=== PATIENT | male | born 1940 | race Caucasian/White ===

== ENCOUNTER 2023-11-18 10:48 | Emergency (ER) | payer MEDICARE, SELFPAY ==
--- NOTE | 2023-11-18 10:48 | XR_ITS ---
WS: [id number] Portable AP upright chest, 11/18/2023 Clinical Data: dyspnea/cough Comparison: None. Findings: There are patchy bilateral lower lobe opacities which could represent atelectasis and/or pn eumonia. The heart is enlarged. The aortic arch and descending thoracic aorta show calcification and tortuosity. No pneumothorax is present. The pulmonary vascularity is not increased. There are surgica l clips in the right supraclavicular region. Monitor leads are on the chest wall. Impression: 1. Bilateral lower lobe opacities which could represent atelectasis and/or pneumonia. 2. Cardiomegaly and atherosclerosis.
--- NOTE | 2023-11-18 10:49 | ECG_ITS ---
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 Measurements Intervals [place] Rate: 60 P: 37 PA: 202 QRS: 41 QRSD: 122 T: -23 QT: 452 QTc: 452 Interpretive Statements SINUS RHYTHM WITH OCCASIONAL VENTRICULAR PREMATURE COMPLEXES INFERIOR MYOCARDIAL INFARCTION , OF INDETERMINATE AGE [40+ ms Q WAVE AND/OR ST/T ABNORMALITY IN II/aVF] ANTEROLATERAL MYOCARDIAL INFARCTION , OF INDETERMINATE AGE [40+ ms Q WAVE IN I/aVL/V3-V6] No previous ECG available for comparison Electronically Signed On 11-18-2023 14:00:57 ECOMMERCE ANALYST by Theodore Davison M.D. [email or web address].[place] Therapeuticssinging river gulfportThe New Motionselect medical [facility].[employer]/store/OM/[id number]
[2023-11-18 10:55] VITALS: BP 153/84; PULSE 58; RESP 16; TEMP 36.4; O2SAT 99; BMI 22.2
[2023-11-18 11:09] VITALS: BP 165/67; PULSE 55; RESP 16; O2SAT 98
[2023-11-18 11:15] LABS: Add Urine Microscopic? NO; Charge for UA Resulting for Rev
--- NOTE | 2023-11-18 11:16 | XR_ITS ---
WS: [id number] Right hip, 2 views, 11/18/2023 Clinical Data: trauma Comparison: None. Findings: The right hip arthroplasty is in good position. No periprosthetic fractures or loosening is seen. The re are vascular calcifications. The adjacent pelvis shows no abnormalities. Impression: Stable right hip arthroplasty
--- NOTE | 2023-11-18 11:16 | ED_ITS ---
HPI - Syncope 2 General: Chief Complaint: Syncope Stated Complaint: weakness, syncope Time Seen by Provider: 11/18/23 10:48 Source: patient Mode of arrival: EMS History of Present Illness: 83-year-old male resident of [facility] license of [facility] comes in by EMS. He gotten up got lightheaded dizzy felt weak he fell hit his head as he went down the wall and also was complaining of right hip pain this all happened this morning. There is no loss consciousness he states he otherwise feels fine at this time no recent change in medications he is awake alert oriented denies chest pain or abdominal pain is able to move all extremities without significant discomfort most of his right hip pain is over the lateral greater trochanter. He is not on any anticoagulants. MD complaint: almost passed out Onset (ago): minute(s) Prodromal symptoms: none Associated symptoms: Deny abdominal pain, chest pain, fever(s), headache(s), lightheadedness, nausea, short of breath, vertigo or weakness Treatments prior to arrival: none Review of Systems 2 Const: Denies: fever(s) or chills Card: Denies: chest pain, palpitations, irregular heart rhythm, edema, swelling of feet/ankles or lightheadedness Resp: Denies: dyspnea GI: Denies: abdominal pain or nausea : Denies: dysuria, urinary frequency or urinary urgency Musc: Denies: neck pain or back pain Skin/Breast: Denies: rash Neuro: Denies: headache(s) or vertigo Physical Exam 2 Const: COMMON NORMALS: no acute distress GENERAL APPEARANCE: cooperative and comfortable ORIENTATION/CONSCIOUSNESS: Yes awake, Yes oriented to person, Yes oriented to place and Yes oriented to time HENMT: COMMON NORMALS: normocephalic, atraumatic and hearing grossly normal bilaterally HEAD & SCALP: normocephalic and atraumatic Resp: COMMON NORMALS: normal respiratory effort, No retractions, No use of accessory muscles and clear to auscultation bilaterally AUSCULTATION: clear to auscultation bilaterally Cardio: COMMON NORMALS: regular rate, regular rhythm and No murmurs present (Cardio) RATE: regular rate RHYTHM: regular rhythm GI: COMMON NORMALS: Soft to palpation and No hepatosplenomegaly present A USCULTATION: Yes normoactive bowel sounds PALPATION: Yes Soft to palpation, No Tenderness to palpation present (GI), No Guarding due to palpation present (GI) and Yes No hepatosplenomegaly present Extremity: COMMON NORMALS: normal to inspection, capillary refill normal, no clubbing, cyanosis or edema, no calf tenderness and no pedal edema Neuro: SENSORIUM/ORIENTATION: Yes oriented to person, Yes oriented to place and Yes oriented to time Skin: COMMON NORMALS: no rashes or lesions noted GENERAL SKIN EXAM: no rashes or lesions noted Course 2 Vital Signs: Vital signs: Vital Signs Temperature 97.6 F 11/18/23 10:55 Pulse Rate 55 L 11/18/23 14:50 Respiratory Rate 12 11/18/23 12:52 Blood Pressure 108/79 11/18/23 12:52 Pulse Oximetry 97 11/18/23 14:50 Oxygen Delivery Me thod Room Air 11/18/23 12:52 MDM - Syncope Medical Decision Making No further symptoms EKG shows Q waves in V45 and 6, no ST depression no chest pain. Lab or x-rays reviewed no significant abnormality symptoms likely due to orthostatic hypotension patient is feeling better will discharge back to the senior living continue same medications follow-up with primary care at the senior living Medical Records I reviewed the patient's medical records. Lab Data I reviewed the patient's lab results. 11/18/23 11:52 11/18/23 11:52 Laboratory Results WBC 8.02 10^3/uL (3.29-11.43) 11/18/23 11:52 RBC 4.61 10^6/uL (3.85-5.65) 11/18/23 11:52 Hgb 16.10 g/dL (11.27-16.99) 11/18/23 11:52 Hct 47.0 % (37-53) 11/18/23 11:52 MCV 102.0 fl (82-101) H 11/18/23 11:52 MCH 34.9 pg (27-33) H 11/18/23 11:52 MCHC 34.3 g/dL (30-55) 11/18/23 11:52 RDW 14.6 % (12.1-15.1) 11/18/23 11:52 Plt Count 179 10^3/cmm (157-399) 11/18/23 11:52 MPV 10.5 fL (7.4-10.4) H 11/18/23 11:52 Neut % (Auto) 67.5 % 11/18/23 11:52 Lymph % (Auto) 19.3 % 11/18/23 11:52 [place] % (Auto) 10.1 % 11/18/23 11:52 Eos % (Auto) 2.2 % 11/18/23 11:52 Baso % (Auto) 0.5 % 11/18/23 11:52 Neut # (Auto) 5.41 10^3/uL (1.8-7.7) 11/18/23 11:52 Lymph # (Auto) 1.6 10^3/uL (0.8-4.8) 11/18/23 11:52 [place] # (Auto) 0.8 10^3/uL (0.2-0.9) 11/18/23 11:52 Eos # (Auto) 0.2 10^3/uL (0.0-0.8) 11/18/23 11:52 Baso # (Auto) 0.0 10^3/uL (0.0-0.1) 11/18/23 11:52 Nucleated RBC % (auto) 0 % 11/18/23 11:52 Nucleated RBCs # 0.0 /100WBC 11/18/23 11:52 Sodium 136 mmol/L (136-145) 11/18/23 11:52 Potassium 4.5 mmol/L (3.5-5.1) 11/18/23 11:52 Chloride 99 mmol/L (98-107) 11/18/23 11:52 Carbon Dioxide 29 mmol/L (22-29) 11/18/23 11:52 Anion Gap 12.5 (5-19) 11/18/23 11:52 BUN 13 mg/dL (8-23) 11/18/23 11:52 Creatinine 0.8 mg/dL (0.7-1.2) 11/18/23 11:52 GFR Calculation Not Reportable 11/18/23 11:52 Glucose 96 mg/dL (65-115) 11/18/23 11:52 POC Glucose 89 mg/dL (70-110) 11/18/23 11:18 Calculated Osmolality 282 mOsm/kg (285-295) L 11/18/23 11:52 Lactic Acid 1.2 mmol/L (0.5-2.2) 11/18/23 11:52 Calcium 10.0 mg/dL (8.5-10.5) 11/18/23 11:52 Total Bilirubin 1.3 mg/dL (0.15-1.2) H 11/18/23 11:52 AST 10 U/L (0-40) 11/18/23 11:52 ALT < 5 U/L (0-41) 11/18/23 11:52 Alkaline Phosphatase 61 U/L (40-130) 11/18/23 11:52 Troponin T Baseline 32 ng/L (0-15) H 11/18/23 11:52 Troponin T 120 Minute 38.92 ng/L (0-15) H 11/18/23 13:41 Delta Troponin T 6.92 ABS# (0-10) 11/18/23 13:41 Total Protein 7.0 g/dL (6.6-8.7) 11/18/23 11:52 Albumin 3.9 g/dL (3.5-5.2) 11/18/23 11:52 Globulin 3.1 g/dL (1.3-4.6) 11/18/23 11:52 Urine Color Yellow (Yellow) 11/18/23 11:02 Urine Appearance Clear (CLEAR) 11/18/23 11:02 Urine pH 8 (5-7) H 11/18/23 11:02 Ur Specific [place] 1.010 (1.005-1.030) 11/18/23 11:02 Urine Protein Neg (Negative) 11/18/23 11:02 Urine Glucose (UA) Norm (Normal) 11/18/23 11:02 Urine Ketones Negative (Negative) 11/18/23 11:02 Urine Blood Neg (Negative) 11/18/23 11:02 Urine Nitrate Negative (Negative) 11/18/23 11:02 Urine Bilirubin Neg (Negative) 11/18/23 11:02 Prot Sulfosalicylic Acd Negative (Negative) 11/18/23 11:02 Urine Urobilinogen Norm mg/dL (Negative) 11/18/23 11:02 Ur Leukocyte Esterase Negative (Negative) 11/18/23 11:02 Coronavirus 229E (PCR) Not detected (NOT DETECT) 11/18/23 12:14 Influenza Type A Ag negative (Negative) 11/18/23 11:47 Influenza Type B Ag negative (Negative) 11/18/23 11:47 SARS-CoV-2 (PCR) Not detected (NOT DETECT) 11/18/23 12:14 All radiology interpretation(s) finalized by discharge Discharge Plan Discharge Patient Disposition: Home Clinical Impression: Syncope due to orthostatic hypotension Condition: Stable Prescriptions: No Action glycopyrrolate 1 mg tablet 1 mg PO TID@0800,1199,2014 atorvastatin 40 mg tablet 40 mg PO DAILY@2014 ascorbic acid (vitamin C) [Vitamin C] 1,000 mg Tablet 1,000 mg PO DAILY@08 Tylenol 325 mg Tablet 650 mg PO Q4H PRN (Reason: Pain) ropinirole 1 mg tablet 1 mg PO TID@0800,1600,2014 donepezil 5 mg tablet 5 mg PO DAILY@08 albuterol sulfate 2.5 mg /3 mL (0.083 %) Solution For Nebulization 2.5 mg inhalation .EVERY 4-6 HOURS PRN (Reason: Wheezing) Miralax 17 gram Powder In Packet 17 g PO DAILY PRN (Reason: Constipation) aspirin 325 mg Tablet 325 mg PO DAILY@08 cyanocobalamin (vitamin B-12) 1,000 mcg Tablet 1,000 mcg PO DAILY@08 melatonin 3 mg Tablet 6 mg PO BEDTIME famotidine 20 mg tablet 20 mg PO BID@0800,2014 Refresh Tears 0.5 % Drops 1 - 2 drp ophthalmic (eye) PRN Colace 100 mg Capsule 100 - 300 mg PO DAILY PRN (Reason: Constipation) [place] Bismuth 262 mg Tablet,Chewable 524 mg PO .EVERY 30-60 MINS PRN (Reason: Heartburn) carbidopa-levodopa 25-100 mg tablet 1.5 tab PO QID Rx Instructions: @06:00,12:00,16:00,20:15 alfuzosin 10 mg tablet extended release 24 hr 10 mg PO DAILY@08 Refresh P.M. (lanolin) Ointment See Rx Instructions .ROUTE .COMPLEX Rx Instructions: PULL DOWN LOWER LID OF AFFECTED EYE AND APPLY SMALL AMOUNT INSIDE OF EYE calcium carbonate-vitamin D3 [Calcium 600 + D(3)] 600 mg-10 mcg (400 unit) Tablet 1 tab PO DAILY@08 cholecalciferol (vitamin D3) [Vitamin D3] 50 mcg (2,000 unit) Capsule 2,000 unit PO DAILY@08 Systane Nighttime 94-3 % Ointment See Rx Instructions .ROUTE .COMPLEX Rx Instructions: APPLY TO DRY EYES NEEDED Systane Gel 0.4-0.3 % Drops,Gel 1 - 2 drp OPHTHALMIC (EYE) PRN Rx Instructions: TO AFFECTED EYE menthol 1.1 mg Lozenge 1.1 mg PO .EVERY 2 HOURS PRN (Reason: Cough) Discharge Orders: Discharge ED (Routine); Ordered 11/18/23 Ordered By: Phan Salter Discharge Diet: Usual diet Discharge Activity: Increase activity as tolerated Patient Instructions: Opioid Safety, Pain Management Activity Restrictions/Additional Instructions: Thank you for choosing [facility] for your healthcare needs today. Please realize this is an emergency room and that we are providing you with a medical screening exam and this may not be complete and all inclusive of all the testing and or work up that you may need to determine your ailment or severity of your illness. It is very important that you follow up as instructed or that you return to the Emergency Department should you have concerns or if your condition changes or worsens in any way. Coding Level of Care Code ED Corporate Director for Tadeo Peoples
--- NOTE | 2023-11-18 11:16 | CT_ITS ---
WS: [id number] CT HEAD NONCONTRAST HISTORY: trauma TECHNIQUE: Contiguous axial imaging performed through the brain in 2.5 mm imaging. Bone and soft tiss ue windows. Sagittal and coronal reformats reviewed. All CT scans at [facility] use at least one of these dose optimization techniques: automated exposure control; mA and/or kV adjustment per pa tient size (includes targeted exams where dose is matched to clinical indication); or iterative recon struction. DLP: 1026.28 mGy.cm COMPARISON: None available. No acute intracranial hemorrhage, midline shift or mass effect. Mild bilateral symmetric atrophy and mild small vessel ischemic disease. There is also moderate cereb ellar atrophy which is symmetric. Ventricles: Mild ventriculomegaly on the basis of atrophy. No inferior displacement the cerebellar tonsils. Paranasal sinuses: As visualized are clear. Mastoid air cells: Well pneumatized. Calvarium and scalp: Skull is intact with no soft tissue edema or swelling. IMPRESSION: 1. No acute intracranial hemorrhage or edema. 2. Mild cerebral and cerebellar atrophy with small vessel ischemic disease.
[2023-11-18 11:22] LABS: Glucose Point of Care 89 mg/dL (70-110)
[2023-11-18 11:27] LABS: Bilirubin Urine Neg (Negative); Blood Urine Neg (Negative); Glucose Urine UA Norm (Normal); Ketones Urine Negative (Negative); Leukocyte Esterase Urine Negative (Negative); Nitrate Urine Negative (Negative); Protein Urine Neg (Negative); Sulfosalicylic Acid Urine Negative (Negative); Urine Appearance Clear (CLEAR); Urine Color Yellow (Yellow); Urobilinogen Urine Norm (Negative); pH Urine 8 (5-7)
--- NOTE | 2023-11-18 11:31 | PC.PHAR ---
PT IS FROM [facility] [phone] ETHAN THAT WORKS AT [facility] PT HAD ALL HIS AM MEDS TODAY 11/18/23-PTS GLENNA HAS VIT C 10,000MG DAILY CALLED AND VERIFIED WITH ETHAN THAT IT IS ACTUALLY 1,000MG DAILY-MEDICATIONS ENTERED ARE FROM THE PTS MAR AND TAR AND WHAT ETHAN STATES THE PT TAKES
[2023-11-18 12:16] LABS: Basophils % 0.5 %; Eosinophils # 0.2 10^3/uL (0.0-0.8); Eosinophils % 2.2 %; Lymphocytes # 1.6 10^3/uL (0.8-4.8); Lymphocytes % 19.3 %; Mean Corpuscular HGB Conc 34.3 g/dL (30-55); Mean Corpuscular Hemoglobin 34.9 pg (27-33); Mean Platelet Volume 10.5 fL (7.4-10.4); Monocytes # 0.8 10^3/uL (0.2-0.9); Monocytes % 10.1 %; Neutrophils # 5.41 10^3/uL (1.8-7.7); Neutrophils % 67.5 %; Nucleated Red Blood Cells % 0 %; Platelet Count 179 10^3/cmm (157-399); Red Blood Count 4.61 10^6/uL (3.85-5.65); Red Cell Distribution Width 14.6 % (12.1-15.1); White Blood Count 8.02 10^3/uL (3.29-11.43)
[2023-11-18 12:34] LABS: Influenza A by IFA negative (Negative); Influenza B by IFA negative (Negative)
[2023-11-18 12:35] LABS: Lactic Sepsis W/Reflex 1.2 mmol/L (0.5-2.2)
[2023-11-18 12:37] LABS: Troponin(5th) Baseline 32 ng/L (0-15)
[2023-11-18 12:39] LABS: Alanine Aminotransferase < 5 U/L (0-41); Albumin Level 3.9 g/dL (3.5-5.2); Alkaline Phosphatase 61 U/L (40-130); Anion Gap 12.5 (5-19); Aspartate Amino Transferase 10 U/L (0-40); Blood Urea Nitrogen 13 mg/dL (8-23); Carbon Dioxide 29 mmol/L (22-29); Chloride 99 mmol/L (98-107); Globulin 3.1 g/dL (1.3-4.6); Glucose 96 mg/dL (65-115); Osmolality Calculated 282 mOsm/kg (285-295); Potassium 4.5 mmol/L (3.5-5.1); Sodium 136 mmol/L (136-145); Total Bilirubin 1.3 mg/dL (0.15-1.2)
[2023-11-18 12:52] VITALS: BP 108/79; PULSE 60; RESP 12; O2SAT 99
--- NOTE | 2023-11-18 13:06 | ECG_ITS ---
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 Measurements Intervals [place] Rate: 58 P: 24 NE: 199 QRS: 35 QRSD: 125 T: -53 QT: 468 QTc: 461 Interpretive Statements SINUS BRADYCARDIA WITH OCCASIONAL VENTRICULAR PREMATURE COMPLEXES INFERIOR MYOCARDIAL INFARCTION , OF INDETERMINATE AGE [40+ ms Q WAVE AND/OR ST/T ABNORMALITY IN II/aVF] ANTEROLATERAL MYOCARDIAL INFARCTION , OF INDETERMINATE AGE [40+ ms Q WAVE IN I/aVL/V3-V6] Compared to ECG 11/18/2023 10:56:54 Sinus rhythm no longer present Myocardial infarct finding still present Electronically Signed On 11-18-2023 14:01:29 FIRE EQUIPMENT OPERATOR by Theodore Davison M.D. [id number]
--- NOTE | 2023-11-18 13:25 | PC.NURSE ---
discharge delayed d/t pt needing ride home
[2023-11-18 14:03] LABS: Adenovirus Not Detected (NOT DETECT); Chlamydia Pneumoniae Not Detected (NOT DETECT); Coronavirus 229E,HKU1,NL63,OC4 Not Detected (NOT DETECT); Human Metapneumovirus Not Detected (NOT DETECT); Human Rhinovirus/Enterovirus Not Detected (NOT DETECT); Influenza A Not Detected (NOT DETECT); Influenza A H1 Not Detected (NOT DETECT); Influenza A H1-2009 Not Detected (NOT DETECT); Influenza A H3 Not Detected (NOT DETECT); Influenza B Not Detected (NOT DETECT); Mycoplasma Pneumoniae Not Detected (NOT DETECT); Parainfluenza Virus Type 1 Not Detected (NOT DETECT); Parainfluenza Virus Type 2 Not Detected (NOT DETECT); Parainfluenza Virus Type 3 Not Detected (NOT DETECT); Parainfluenza Virus Type 4 Not Detected (NOT DETECT); Respiratory Syncytial Virus A Not Detected (NOT DETECT); Respiratory Syncytial Virus B Not Detected (NOT DETECT); SARS-COV-2 Not Detected (NOT DETECT)
[2023-11-18 14:19] LABS: Troponin 5 2HR 38.92 ng/L (0-15); Troponin 5 2HR Delta 6.92 ABS# (0-10)
[2023-11-18 14:33] VITALS: PULSE 55; O2SAT 97
[2023-11-18 14:50] VITALS: PULSE 55; O2SAT 97
== END 2023-11-18 15:03 | disposition home or self-care (01) ==
PROVIDERS: Emergency Provider Family Medicine
DX: I95.1 Orthostatic hypotension (principal); Z79.82 Long term (current) use of aspirin; Z11.52 Encounter for screening for COVID-19
CPT/HCPCS: 36415; 36416; 70450; 71045; 73502; 80053; 81003; 82962; 83605; 84484; 85025; 87635; 87804; 93005; 99285

== ENCOUNTER 2023-11-24 14:37 | Emergency (ER) | payer MEDICARE, SELFPAY ==
[2023-11-24 14:38] VITALS: BP 143/71; PULSE 62; RESP 18; TEMP 36.7; O2SAT 95; BMI 21.9
--- NOTE | 2023-11-24 14:42 | ECG_ITS ---
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 Measurements Intervals [place] Rate: 61 P: 35 [place]: 203 QRS: 12 QRSD: 119 T: -48 QT: 410 QTc: 416 Interpretive Statements SINUS RHYTHM INFERIOR MYOCARDIAL INFARCTION , PROBABLY RECENT [40+ ms Q WAVE AND/OR ST/T ABNORMALITY IN II/aVF] ANTEROLATERAL MYOCARDIAL INFARCTION , OF INDETERMINATE AGE [40+ ms Q WAVE IN I/aVL/V3-V6] ACUTE NH Compared to ECG 11/18/2023 13:06:10 Sinus bradycardia no longer present Ventricular premature complex(es) no longer present Myocardial infarct finding still present Electronically Signed On 11-24-2023 20:05:42 BLASTING MINER by Jayda Valera M.D. [email or web address]/[id number]
--- NOTE | 2023-11-24 14:43 | W.ED.GENADLT ---
HPI - General Adult General: Chief complaint: General Medical Stated complaint: hypotension Time Seen by Provider: 11/24/23 14:42 History of Present Illness: 83-year-old male patient with hypotension comes in today due to not feeling well and having a low blood pressure. Patient appears nontoxic. Patient's blood pressure has recovered to 143/71. Patient reports that he has a known hypotensive and due to his Parkinson's disease. Patient reports he has had physical therapy and it was noted that in about 5 minutes most of the time patient's blood pressure will drop the longer he stands. Patient at this time denies any pain or discomfort. Patient appears nontoxic. Respirations are even. Patient appears in no pain. Review of Systems General: Reports: 10 or more systems reviewed and unremarkable except in HPI and below Physical Exam Const: COMMON NORMALS: alert HENMT: COMMON NORMALS: normocephalic HEAD & SCALP: normocephalic Neck/C-Spine: COMMON NORMALS: full ROM Resp: COMMON NORMALS: normal respiratory effort and clear to auscultation bilaterally AUSCULTATION: clear to auscultation bilaterally Cardio: COMMON NORMALS: regular rate and regular rhythm RATE: regular rate RHYTHM: regular rhythm GI: COMMON NORMALS: Soft to palpation and non-tender PALPATION: Yes Soft to palpation Extremity: COMMON NORMALS: normal to inspection Neuro: SENSORIUM/ORIENTATION: Yes alert Skin: COMMON NORMALS: turgor normal GENERAL SKIN EXAM: turgor normal Course Vital Signs: Vital signs: Vital Signs Temperature 98.0 F 11/24/23 14:38 Pulse Rate 62 11/24/23 14:48 Respiratory Rate 18 11/24/23 14:48 Blood Pressure 143/71 11/24/23 14:48 Pulse Oximetry 95 11/24/23 14:48 Oxygen Delivery Me thod Room Air 11/24/23 14:48 [facility] - General Adult Medical Decision Making 83-year-old male patient with Parkinson's was brought into the ER for concerns of hypotension. Patient has hypotensive episodes secondary to his Parkinson's. There was concerned due to his blood pressure getting to 70 systolic. Patient blood pressure has since recovered to 143 systolic. Patient appears nontoxic. Patient appears in no pain. Respirations are even lungs are clear to auscultation. Skin is warm and dry vital signs are normal. Differential diagnosis includes not limited to dehydration, ACS, anemia, BPV, neurogenic orthostatic hypotension. Believe patient's hypotension is secondary to his Parkinson's disease. Laboratory values were unremarkable. 2-hour troponin showed no change. EKG showed no change from prior exams. Recommend patient follow-up with primary care to discuss options regarding treatment for management of hypotension. Patient reported understanding agreed to plan. Lab Data 11/24/23 15:03 11/24/23 15:03 Laboratory Results WBC 8.92 10^3/uL (3.29-11.43) 11/24/23 15:03 RBC 4.36 10^6/uL (3.85-5.65) 11/24/23 15:03 Hgb 15.30 g/dL (11.27-16.99) 11/24/23 15:03 Hct 45.2 % (37-53) 11/24/23 15:03 MCV 103.7 fl (82-101) H 11/24/23 15:03 MCH 35.1 pg (27-33) H 11/24/23 15:03 MCHC 33.8 g/dL (30-55) 11/24/23 15:03 RDW 14.6 % (12.1-15.1) 11/24/23 15:03 Plt Count 170 10^3/cmm (157-399) 11/24/23 15:03 MPV 10.2 fL (7.4-10.4) 11/24/23 15:03 Neut % (Auto) 72.9 % 11/24/23 15:03 Lymph % (Auto) 15.5 % 11/24/23 15:03 [place] % (Auto) 9.1 % 11/24/23 15:03 Eos % (Auto) 1.6 % 11/24/23 15:03 Baso % (Auto) 0.7 % 11/24/23 15:03 Neut # (Auto) 6.51 10^3/uL (1.8-7.7) 11/24/23 15:03 Lymph # (Auto) 1.4 10^3/uL (0.8-4.8) 11/24/23 15:03 [place] # (Auto) 0.8 10^3/uL (0.2-0.9) 11/24/23 15:03 Eos # (Auto) 0.1 10^3/uL (0.0-0.8) 11/24/23 15:03 Baso # (Auto) 0.1 10^3/uL (0.0-0.1) 11/24/23 15:03 Nucleated RBC % (auto) 0 % 11/24/23 15:03 Nucleated RBCs # 0.0 /100WBC 11/24/23 15:03 Sodium 138 mmol/L (136-145) 11/24/23 15:03 Potassium 4.1 mmol/L (3.5-5.1) 11/24/23 15:03 Chloride 102 mmol/L (98-107) 11/24/23 15:03 Carbon Dioxide 26 mmol/L (22-29) 11/24/23 15:03 Anion Gap 14.1 (5-19) 11/24/23 15:03 BUN 17 mg/dL (8-23) 11/24/23 15:03 Creatinine 0.8 mg/dL (0.7-1.2) 11/24/23 15:03 GFR Calculation Not Reportable 11/24/23 15:03 Glucose 109 mg/dL (65-115) 11/24/23 15:03 Calculated Osmolality 288 mOsm/kg (285-295) 11/24/23 15:03 Calcium 9.7 mg/dL (8.5-10.5) 11/24/23 15:03 Total Bilirubin 0.5 mg/dL (0.15-1.2) 11/24/23 15:03 AST 10 U/L (0-40) 11/24/23 15:03 ALT < 5 U/L (0-41) 11/24/23 15:03 Alkaline Phosphatase 60 U/L (40-130) 11/24/23 15:03 Troponin T Baseline 23 ng/L (0-15) H 11/24/23 15:03 Troponin T 120 Minute 24.08 ng/L (0-15) H 11/24/23 16:57 Delta Troponin T 1.08 ABS# (0-10) 11/24/23 16:57 Total Protein 7.0 g/dL (6.6-8.7) 11/24/23 15:03 Albumin 3.9 g/dL (3.5-5.2) 11/24/23 15:03 Globulin 3.1 g/dL (1.3-4.6) 11/24/23 15:03 All radiology interpretation(s) finalized by discharge EKG Data EKG 1: EKG interpretation date: 11/24/23 EKG interpretation time: 15:15 Prior EKG tracings: not available for review Interpretation: EKG shows a sinus rhythm with a regular rate at [address] elevation or ectopy is noted. No prior exam was available for comparison. Computer generated interpretation: Sinus rhythm, inferior myocardial infarction, probably recent. Anterior lateral myocardial infarction, of indeterminate age. Interpretation per cardiology, compared to EKG of 11/18/2023, sinus bradycardia no longer present, ventricular premature complexes no longer present, myocardial infarct finding still present. 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 Condition: Stable Prescriptions: No Action OcuSoft Lid Scrub Pads, Medicated 1 pad TOPICAL DAILY Refresh Plus 0.5 % Dropperette 1 - 2 drp OPHTHALMIC (EYE) PRN PRN (Reason: Dry Eyes) glycopyrrolate 1 mg tablet 1 mg PO TID@0800,1200,2014 atorvastatin 40 mg tablet 40 mg PO DAILY@2015 ascorbic acid (vitamin C) [Vitamin C] 1,000 mg Tablet 1,000 mg PO DAILY@08 acetaminophen [Tylenol] 325 mg Tablet 650 mg PO Q4H PRN (Reason: Pain) ropinirole 1 mg tablet 1 mg PO TID@0800,1600,2014 donepezil 5 mg tablet 5 mg PO DAILY@08 albuterol sulfate 2.5 mg /3 mL (0.083 %) Solution For Nebulization 2.5 mg inhalation .EVERY 4-6 HOURS PRN (Reason: Wheezing) polyethylene glycol 3350 [Miralax] 17 gram Powder In Packet 17 g PO DAILY PRN (Reason: Constipation) aspirin 325 mg Tablet 325 mg PO DAILY@08 cyanocobalamin (vitamin B-12) 1,000 mcg Tablet 1,000 mcg PO DAILY@08 melatonin 3 mg Tablet 6 mg PO BEDTIME famotidine 20 mg tablet 20 mg PO BID@0800,2014 docusate sodium [Colace] 100 mg Capsule 100 - 300 mg PO DAILY PRN (Reason: Constipation) bismuth subsalicylate [[place] Bismuth] 262 mg Tablet,Chewable 524 mg PO .EVERY 30-60 MINS PRN (Reason: Heartburn) carbidopa-levodopa 25-100 mg tablet 1.5 tab PO QID Rx Instructions: @06:00,12:00,16:00,20:15 alfuzosin 10 mg tablet extended release 24 hr 10 mg PO DAILY@08 Refresh P.M. (lanolin) Ointment See Rx Instructions .ROUTE .COMPLEX Rx Instructions: PULL DOWN LOWER LID OF AFFECTED EYE AND APPLY SMALL AMOUNT INSIDE OF EYE calcium carbonate-vitamin D3 [Calcium 600 + D(3)] 600 mg-10 mcg (400 unit) Tablet 1 tab PO DAILY@08 cholecalciferol (vitamin D3) [Vitamin D3] 50 mcg (2,000 unit) Capsule 2,000 unit PO DAILY@08 Systane Nighttime 94-3 % Ointment See Rx Instructions .ROUTE .COMPLEX Rx Instructions: APPLY OINTMENT TO DRY EYES NEEDED Systane Gel 0.4-0.3 % Drops,Gel 1 - 2 drp OPHTHALMIC (EYE) PRN Rx Instructions: TO AFFECTED EYE menthol 1.1 mg Lozenge 1.1 mg PO .EVERY 2 HOURS PRN (Reason: Cough) Discharge Orders: Discharge ED (Routine); Ordered 11/24/23 Ordered By: Shane Darling Discharge Diet: Usual diet Discharge Activity: Increase activity as tolerated Patient Instructions: Hypotension (ED) Activity Restrictions/Additional Instructions: Change positions slowly. Follow-up with primary care for changes in your medication or additional medications to help with the low blood pressure. Return to ER for new concerns. Coding Level of Care Code ED Master [place] for Tadeo Peoples
[2023-11-24 14:48] VITALS: BP 143/71; PULSE 62; RESP 18; O2SAT 95
[2023-11-24 15:14] LABS: Basophils # 0.1 10^3/uL (0.0-0.1); Basophils % 0.7 %; Eosinophils # 0.1 10^3/uL (0.0-0.8); Eosinophils % 1.6 %; Hematocrit 45.2 % (37-53); Lymphocytes # 1.4 10^3/uL (0.8-4.8); Lymphocytes % 15.5 %; Mean Corpuscular HGB Conc 33.8 g/dL (30-55); Mean Corpuscular Hemoglobin 35.1 pg (27-33); Mean Corpuscular Volume 103.7 fl (82-101); Mean Platelet Volume 10.2 fL (7.4-10.4); Monocytes # 0.8 10^3/uL (0.2-0.9); Monocytes % 9.1 %; Neutrophils # 6.51 10^3/uL (1.8-7.7); Neutrophils % 72.9 %; Nucleated Red Blood Cells % 0 %; Platelet Count 170 10^3/cmm (157-399); Red Blood Count 4.36 10^6/uL (3.85-5.65); Red Cell Distribution Width 14.6 % (12.1-15.1); White Blood Count 8.92 10^3/uL (3.29-11.43)
[2023-11-24 15:38] LABS: Alanine Aminotransferase < 5 U/L (0-41); Albumin Level 3.9 g/dL (3.5-5.2); Alkaline Phosphatase 60 U/L (40-130); Anion Gap 14.1 (5-19); Aspartate Amino Transferase 10 U/L (0-40); Blood Urea Nitrogen 17 mg/dL (8-23); Calcium 9.7 mg/dL (8.5-10.5); Carbon Dioxide 26 mmol/L (22-29); Chloride 102 mmol/L (98-107); Globulin 3.1 g/dL (1.3-4.6); Glucose 109 mg/dL (65-115); Osmolality Calculated 288 mOsm/kg (285-295); Potassium 4.1 mmol/L (3.5-5.1); Sodium 138 mmol/L (136-145); Total Bilirubin 0.5 mg/dL (0.15-1.2); Troponin(5th) Baseline 23 ng/L (0-15)
--- NOTE | 2023-11-24 16:01 | PC.PHAR ---
PT IS [facility] [phone]
--- NOTE | 2023-11-24 16:44 | ECG_ITS ---
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 Measurements Intervals [place] Rate: 59 P: 41 [place]: 202 QRS: 23 QRSD: 125 T: -70 QT: 411 QTc: 409 Interpretive Statements SINUS BRADYCARDIA ANTEROLATERAL MYOCARDIAL INFARCTION , OF INDETERMINATE AGE [40+ ms Q WAVE IN I/aVL/V3-V6] Possible old inferior wall CT Compared to ECG 11/24/2023 15:08:24 Sinus rhythm no longer present Myocardial infarct finding still present Electronically Signed On 11-24-2023 20:23:03 ACCESS TECH by Jayda Valera M.D. [id number]
[2023-11-24 17:27] LABS: Troponin 5 2HR 24.08 ng/L (0-15); Troponin 5 2HR Delta 1.08 ABS# (0-10)
[2023-11-24 18:02] VITALS: BP 185/82; PULSE 59; O2SAT 97
== END 2023-11-24 18:04 | disposition home or self-care (01) ==
PROVIDERS: Emergency Provider Nurse Practitioner Family
DX: G20.A1 Parkinson's disease without dyskinesia, without mention of fluctuations (principal); G90.3 Multi-system degeneration of the autonomic nervous system; Z79.82 Long term (current) use of aspirin
CPT/HCPCS: 36415; 80053; 84484; 85025; 93005; 99284

== ENCOUNTER 2023-12-31 05:06 | Emergency (ER) | payer MEDICARE, SELFPAY ==
[2023-12-31 05:07] VITALS: BP 149/78; PULSE 66; TEMP 36.8; O2SAT 97; BMI 21.9
--- NOTE | 2023-12-31 05:19 | XRR_ITS ---
PROCEDURE INFORMATION: Exam: XR Chest Exam date and time: 12/31/2023 5:24 AM Age: 83 years old Clinical indication: Prior surgery; Surgery date: 6+ months; Surgery type: Open heart; Patient HX: C/O cough with congestion; Additional info: Cough/congestion TECHNIQUE: Imaging protocol: Radiologic exam of the chest. Views: 1 view. COMPARISON: CR XR chest 1V portable [id number] 11/18/2023 10:52 AM FINDINGS: Lungs: Moderate chronic interstitial fibrosis. Pleural spaces: Unremarkable. No pleural effusion. No pneumothorax. Heart/Mediastinum: See Vasculature finding. Vasculature: Mild cardiomegaly and uncoiling of the thoracic aorta. Bones/joints: Unremarkable. Other findings: Surgery at the base of the neck on the right. XR/XR chest 1V portable [id number] IMPRESSION: 1. No acute findings. 2. Moderately severe chronic interstitial fibrosis.
--- NOTE | 2023-12-31 05:32 | ED_ITS ---
HPI - URI/Sore Throat General: Chief Complaint: Upper Respiratory Infection Stated Complaint: RUNNY NOSE Time Seen by Provider: 12/31/23 05:19 History of Present Illness: 83-year-old male presents emerged part w ith complaints of a nonproductive cough for the previous 2 days. He states he also has nasal congestion but also has a runny nose. He denies fevers chills or night sweats. He states he feels like he does get short of breath after he has a coughing fit his oxygen saturation per EMS personnel have been in the mid 90s. Here in the ER his oxygen saturation is 97%. He denies chest pain dizziness lightheaded feeling. He states he has not taken anything [id number] for his cough or congestion. Associated symptoms: Reports nasal congestion Review of Systems General: Reports: 10 or more systems reviewed and unremarkable except in HPI and below ENMT: Reports: nasal congestion and other (Rhinorrhea) Resp: Reports: non-productive cough; Denies: dyspnea or wheezing PFS ED PFSH: Medical History (Updated 01/08/24 @ 00:01 by JASMIN Barroso) Parkinsons disease Diagnosed 2011 Hypotension History of heart attack History of hip fracture Surgical History (Updated 12/29/23 @ 09:07 by Floridalma Meadows MD) History of open heart surgery 1995 History of hip surgery Bilateral Social History (Updated 12/26/23 @ 14:04 by Amber Soriano CMA) Smoking and tobacco/nicotine status: never used tobacco/nicotine Alcohol intake: unknown Substance/Drug Use: unknown Physical Exam Narrative: EXAM NARRATIVE: Constitutional: the patient appears well nourished and of normal development. Vital signs as documented. No acute distress at present. Alert and oriented-to person, place, time and situation. Head, eyes, ears, nose, mouth, throat: Normocephalic, atraumatic. Pupils-equal, round, reactive to light. No scleral icterus. Normal-appearing external ears. Boggy and erythematous appearing nasal turbinates, no drainage. No obvious oral lesions, posterior oropharynx without erythema or exudates. Neck: Supple, trachea is midline, no lymphadenopathy, no jugular venous distens ion, thyromegaly, or carotid bruits. Carotid upstrokes are brisk bilaterally. Lungs: clear to auscultation to all lung hager. Symmetrical rise and fall of chest, no obvious signs of increased work of breathing at present. Cardiac: Regular rate and rhythm, positive S1, S2. No murmurs, rubs or gallops that I can appreciate Abdomen: Soft, non-tender to palpation, normal active bowel sounds to all quadrants. No palpable masses, no organomegaly and abdominal bruits. Extremities: 2+ pulses in the upper extremities that are equal bilaterally, 2+ pulses in the lower extremities that are equal bilaterally. Non-edematous. Moves all extremities well, sensation to all extremities are noted. Skin: Warm, dry, intact. Course Vital Signs: Vital signs: Vital Signs Temperature 98.3 F 12/31/23 05:07 Pulse Rate 66 12/31/23 05:07 Respiratory Rate 18 12/31/23 06:24 Blood Pressure 158/102 12/31/23 06:24 Pulse Oximetry 96 12/31/23 06:24 Oxygen Delivery Me thod Room Air 12/31/23 05:07 MDM - URI/Sore Throat Medical Decision Making Physical exam completed and documented I did obtain a chest x-ray with no acute findings. Differential diagnosis includes upper respiratory viral illness, pneumonia, Medical Records I reviewed the patient's medical records. Lab Data Radiology Impressions Chest X-Ray 12/31/23 05:19 IMPRESSION: 1. No acute findings. 2. Moderately severe chronic interstitial fibrosis. All radiology interpretation(s) finalized by discharge Discharge Plan Discharge Patient Disposition: Home Clinical Impression: Viral upper respiratory illness, Cough, Rhinorrhea Condition: Stable Prescriptions: New fluticasone propionate 50 mcg/actuation spray,suspension 2 spray intranasal DAILY PRN (Reason: nasal congestion) Qty: 16 0RF Rx Instructions: administer into each nostril guaifenesin 1,200 mg tablet extended release 12hr 1,200 mg PO BID Qty: 14 0RF benzonatate 200 mg capsule 200 mg PO TID Qty: 30 0RF No Action fluticasone propionate [Allergy Relief (fluticasone)] 50 mcg/actuation spray,suspension 1 spray intranasal BID Rx Instructions: administer into each nostril albuterol sulfate 2.5 mg /3 mL (0.083 %) solution for nebulization 2.5 mg inhalation Q4H PRN atorvastatin 40 mg tablet 40 mg PO DAILY 90 Days Qty: 90 3RF famotidine 20 mg tablet 20 mg PO BID 90 Days Qty: 180 3RF OcuSoft Lid Scrub Pads, Medicated 1 pad TOPICAL DAILY Refresh Plus 0.5 % Dropperette 1 - 2 drp OPHTHALMIC (EYE) PRN PRN (Reason: Dry Eyes) acetaminophen [Tylenol] 325 mg Tablet 650 mg PO Q4H PRN (Reason: Pain) polyethylene glycol 3350 [Miralax] 17 gram Powder In Packet 17 g PO DAILY PRN (Reason: Constipation) cyanocobalamin (vitamin B-12) 1,000 mcg Tablet 1,000 mcg PO DAILY@08 melatonin 3 mg Tablet 6 mg PO BEDTIME docusate sodium [Colace] 100 mg Capsule 100 - 300 mg PO DAILY PRN (Reason: Constipation) bismuth subsalicylate [[place] Bismuth] 262 mg Tablet,Chewable 524 mg PO .EVERY 30-60 MINS PRN (Reason: Heartburn) carbidopa-levodopa 25-100 mg tablet 1.5 tab PO QID Rx Instructions: @06:00,12:00,16:00,20:15 Refresh P.M. (lanolin) Ointment See Rx Instructions .ROUTE .COMPLEX Rx Instructions: PULL DOWN LOWER LID OF AFFECTED EYE AND APPLY SMALL AMOUNT INSIDE OF EYE cholecalciferol (vitamin D3) [Vitamin D3] 50 mcg (2,000 unit) Capsule 2,000 unit PO DAILY@08 Systane Nighttime 94-3 % Ointment See Rx Instructions .ROUTE .COMPLEX Rx Instructions: APPLY OINTMENT TO DRY EYES NEEDED Systane Gel 0.4-0.3 % Drops,Gel 1 - 2 drp OPHTHALMIC (EYE) PRN Rx Instructions: TO AFFECTED EYE menthol 1.1 mg Lozenge 1.1 mg PO .EVERY 2 HOURS PRN (Reason: Cough) ascorbic acid (vitamin C) [Vitamin C] 1,000 mg tablet 1,000 mg PO DAILY aspirin 325 mg tablet 325 mg PO DAILY calcium carbonate-vitamin D3 [Calcium 600 + D(3)] 600 mg-10 mcg (400 unit) tablet 1 tab PO DAILY donepezil 5 mg tablet 5 mg PO DAILY glycopyrrolate 1 mg tablet 1 mg PO TID ropinirole 1 mg tablet 1 mg PO TID Discharge Orders: Discharge ED (Routine); Ordered 12/31/23 Ordered By: David Sue Referrals: Floridalma Meadows MD [Primary Care Provider] - Discharge Diet: Usual diet Discharge Activity: Resume usual activity Patient Instructions: Opioid Safety, Pain Management Activity Restrictions/Additional Instructions: Activity Restrictions/Additional Instructions: Thank you for choosing [facility] for your healthcare needs today. Please realize that you were seen in the Emergency Department and that we are providing you with an emergency medical screening exam and this may not be a complete and all inclusive of all the testing and or medical work-up that you may need to determine your ailment or severity of your illness. It is very important that you follow-up as instructed with your Primary care provider or Specialist for additional evaluation and to discuss your medical treatment plan. Coding Level of Care Code ED [place] Cloth Finisher for Tadeo Peoples
[2023-12-31 06:24] VITALS: BP 158/102; RESP 18; O2SAT 96
--- NOTE | 2023-12-31 07:56 | PC.PHAR ---
PT IS FROM [facility]
== END 2023-12-31 07:58 | disposition home or self-care (01) ==
PROVIDERS: Emergency Provider Internal Medicine; PCP Family Medicine
DX: J06.9 Acute upper respiratory infection, unspecified (principal); R05.9 Cough, unspecified; J34.89 Other specified disorders of nose and nasal sinuses; Z79.82 Long term (current) use of aspirin; G20.A1 Parkinson's disease without dyskinesia, without mention of fluctuations
CPT/HCPCS: 71045; 99283

== ENCOUNTER 2024-02-05 16:32 | Emergency (ER) | payer MEDICARE, SELFPAY ==
[2024-02-05 16:38] VITALS: BP 134/80; PULSE 79; RESP 17; TEMP 36.5; O2SAT 98; BMI 21.5
--- NOTE | 2024-02-05 16:50 | XRR_ITS ---
PROCEDURE INFORMATION: Exam: XR Chest Exam date and time: 02/05/2024 5:04 PM Age: 83 years old Clinical indication: Other: Weakness; Prior surgery; Surgery date: 6+ months; Surgery type: Open heart; Additional info: Shortness of breath TECHNIQUE: Imaging protocol: Radiologic exam of the chest. Views: 1 view. COMPARISON: CR (CHEST, ) 12/31/2023 5:24 AM FINDINGS: Lungs: Diffuse interstitial markings in the periphery of both lungs are nonspecific but can be seen the setting of bronchitis, pulmonary vascular congestion, viral infection and small-vessel airways disease. No new focal consolidation. Pleural spaces: Unremarkable. No pleural effusion. No pneumothorax. Heart/Mediastinum: Unremarkable. No cardiomegaly. Bones/joints: Unremarkable. XR/XR chest 1V [id number] IMPRESSION: 1. Diffuse interstitial markings in the periphery of both lungs are nonspecific but can be seen the setting of bronchitis, pulmonary vascular congestion, viral infection and small-vessel airways disease. Findings are similar to the prior examination. 2. No new focal consolidation.
--- NOTE | 2024-02-05 17:08 | ED_ITS ---
HPI - Weakness 2 General: Chief complaint: Weakness Stated complaint: WEAKNESS Time Seen by Provider: 02/05/24 16:40 History of Present Illness: 83-year-old man with a history of [place] son's disease and has to use a walker at home, coronary artery disease and history of hypotension who presents to the emergency room with weakness. He says he has been feeling generalized weak since this morning. He says he can barely walk. He says he normally walks with a walker. He says he feels slightly short of breath. No chest pain. No abdominal pain. No nausea or vomiting. No known fevers. Review of Systems 2 Narrative: Constitutional symptoms: Negative except as documented in HPI. Skin symptoms: Negative except as documented in HPI. Eye symptoms: Negative except as documented in HPI. ENMT symptoms: Negative except as documented in HPI. Respiratory symptoms: Negative except as documented in HPI. Cardiovascular symptoms: Negative except as documented in HPI. Gastrointestinal symptoms: Negative except as documented in HPI. Genitourinary symptoms: Negative except as documented in HPI. Musculoskeletal symptoms: Negative except as documented in HPI. Neurologic symptoms: Negative except as documented in HPI. Psychiatric symptoms: Negative except as documented in HPI. Endocrine symptoms: Negative except as documented in HPI. PFSH ED 2 PFSH: Medical History (Updated 02/05/24 @ 20:37 by Thelma Lerner MD) Parkinsons disease Diagnosed 2011 Hypotension History of heart attack History of hip fracture Surgical History (Updated 12/29/23 @ 09:07 by Floridalma Meadows MD) History of open heart surgery 1995 History of hip surgery Bilateral Social History (Updated 12/26/23 @ 14:04 by Amber Soriano CMA) Smoking and tobacco/nicotine status: never used tobacco/nicotine Alcohol intake: unknown Substance/Drug Use: unknown Physical Exam 2 Narrative: EXAM NARRATIVE: General: Alert, no acute distress. Skin: Warm, dry. Head: Normocephalic, atraumatic. Neck: Supple, trachea midline. Eye: Extraocular movements are intact. Ears, nose, mouth and throat: Dry oral mucosa Cardiovascular: Regular, Normal peripheral perfusion. Respiratory: Lungs are clear to auscultation, respirations are non-labored, breath sounds are equal, Symmetrical chest wall expansion. Gastrointestinal: Soft, Nontender, Non distended, Normal bowel sounds. Musculoskeletal: Normal ROM, no deformity. Neurological: Alert and oriented, No focal neurological deficit observed. Patient has some tremor Psychiatric: Cooperative, appropriate mood & affect. Course 2 Vital Signs: Vital signs: Vital Signs Temperature 97.7 F 02/05/24 16:38 Pulse Rate 77 02/05/24 20:00 Respiratory Rate 16 02/05/24 20:00 Blood Pressure 121/70 02/05/24 20:00 Pulse Oximetry 96 02/05/24 20:00 Oxygen Delivery Me thod Room Air 02/05/24 18:00 MDM - Weakness Medical Decision Making Medical decision making: Differential diagnosis for patient presenting with generalized weakness including but not limited to and based on the above HPI, review of systems and physical exam: Sepsis. Dehydration. Renal failure. Electrolyte abnormalities. Anemia. Congestive heart failure. Hypotension. Coronary syndrome. Hepatitis. Cirrhosis. Infections such as pneumonia, urinary tract infection, [place] illness, Cellulitis, Viral infections including influenza and Covid-19. Workup: labwork and lab/exam driven imaging ordered to evaluate, rule in and rule out above pathologies. Chest x-ray: No acute process. No infiltrate. No pneumothorax. No cardiomegaly. This was reviewed and interpreted by myself the ER physician. EKG: Time 183 rate 74 normal sinus rhythm, No ST-T changes, PVCs, normal DE & QRS intervals, This was reviewed and interpreted by myself the ER physician at 1840 Repeat EKG: Time 1948 rate 72 normal sinus rhythm, No ST-T changes, PVCs, normal DE & QRS intervals, This was reviewed and interpreted by myself the ER physician at 1954 Lab Review: Laboratory results were reviewed and interpreted by myself the emergency room physician. Patient has a white count of 12. Hemoglobin 16.8. BUN and creatinine are 13 and 0.7. Viral panel is positive for enterovirus. He also appears to have urinary tract infection. I reviewed the patient's medical record. Reexamination: Patient remained stable. No increased work of breathing. He has some generalized weakness but this seems to be somewhat improved. Also of note apparently his 1 year ago today. Assisted living thinks this may be affecting him as well. Assessment and plan: Enterovirus Urinary tract infection Dehydration Generalized weakness -IV fluids and IV Rocephin. - Discharged home - Discussed findings and plan with patient. Answered any questions. - All laboratory values were reviewed and interpreted personally by myself, the ER physician - All imaging was reviewed and interpreted personally by myself, the ER physician. - Evaluation and treatment of this problem were appropriate in the emergency setting Lab Data 02/05/24 17:18 02/05/24 17:18 Radiology Impressions Chest X-Ray 02/05/24 16:50 IMPRESSION: 1. Diffuse interstitial markings in the periphery of both lungs are nonspecific but can be seen the setting of bronchitis, pulmonary vascular congestion, viral infection and small-vessel airways disease. Findings are similar to the prior examination. 2. No new focal consolidation. Laboratory Results WBC 11.92 10^3/uL (3.29-11.43) H 02/05/24 17:18 RBC 4.77 10^6/uL (3.85-5.65) 02/05/24 17:18 Hgb 16.80 g/dL (11.27-16.99) 02/05/24 17:18 Hct 49.5 % (37-53) 02/05/24 17:18 MCV 103.8 fl (82-101) H 02/05/24 17:18 MCH 35.2 pg (27-33) H 02/05/24 17:18 MCHC 33.9 g/dL (30-55) 02/05/24 17:18 RDW 12.5 % (12.1-15.1) 02/05/24 17:18 Plt Count 300 10^3/cmm (157-399) 02/05/24 17:18 MPV 9.5 fL (7.4-10.4) 02/05/24 17:18 Neut % (Auto) 76.3 % 02/05/24 17:18 Lymph % (Auto) 14.1 % 02/05/24 17:18 Ceiba % (Auto) 8.5 % 02/05/24 17:18 Eos % (Auto) 0.3 % 02/05/24 17:18 Baso % (Auto) 0.4 % 02/05/24 17:18 Neut # (Auto) 9.09 10^3/uL (1.8-7.7) H 02/05/24 17:18 Lymph # (Auto) 1.7 10^3/uL (0.8-4.8) 02/05/24 17:18 Ceiba # (Auto) 1.0 10^3/uL (0.2-0.9) H 02/05/24 17:18 Eos # (Auto) 0.0 10^3/uL (0.0-0.8) 02/05/24 17:18 Baso # (Auto) 0.1 10^3/uL (0.0-0.1) 02/05/24 17:18 Nucleated RBC % (auto) 0 % 02/05/24 17:18 Nucleated RBCs # 0.0 /100WBC 02/05/24 17:18 Sodium 139 mmol/L (136-145) 02/05/24 17:18 Potassium 4.4 mmol/L (3.5-5.1) 02/05/24 17:18 Chloride 99 mmol/L (98-107) 02/05/24 17:18 Carbon Dioxide 29 mmol/L (22-29) 02/05/24 17:18 Anion Gap 15.4 (5-19) 02/05/24 17:18 BUN 13 mg/dL (8-23) 02/05/24 17:18 Creatinine 0.7 mg/dL (0.7-1.2) 02/05/24 17:18 GFR Calculation Not Reportable 02/05/24 17:18 Glucose 100 mg/dL (65-115) 02/05/24 17:18 Calculated Osmolality 288 mOsm/kg (285-295) 02/05/24 17:18 Lactic Acid 1.1 mmol/L (0.5-2.2) 02/05/24 17:18 Calcium 10.0 mg/dL (8.5-10.5) 02/05/24 17:18 Total Bilirubin 0.8 mg/dL (0.15-1.2) 02/05/24 17:18 AST 10 U/L (0-40) 02/05/24 17:18 ALT 6 U/L (0-41) 02/05/24 17:18 Alkaline Phosphatase 81 U/L (40-130) 02/05/24 17:18 Troponin T Baseline 30 ng/L (0-15) H 02/05/24 17:18 Troponin T 120 Minute 26.37 ng/L (0-15) H 02/05/24 20:05 Delta Troponin T -3.63 ABS# (0-10) L 02/05/24 20:05 C-Reactive Protein 45.5 mg/L (0.0-4.9) H 02/05/24 17:18 Total Protein 8.1 g/dL (6.6-8.7) 02/05/24 17:18 Albumin 4.2 g/dL (3.5-5.2) 02/05/24 17:18 Globulin 3.9 g/dL (1.3-4.6) 02/05/24 17:18 Urine Color Yellow (Yellow) 02/05/24 17:56 Urine Appearance Clear (CLEAR) 02/05/24 17:56 Urine pH 7 (5-7) 02/05/24 17:56 Ur Specific [place] 1.010 (1.005-1.030) 02/05/24 17:56 Urine Protein Neg (Negative) 02/05/24 17:56 Urine Glucose (UA) Norm (Normal) 02/05/24 17:56 Urine Ketones 2+ (Negative) H 02/05/24 17:56 Urine Blood Neg (Negative) 02/05/24 17:56 Urine Nitrate Negative (Negative) 02/05/24 17:56 Urine Bilirubin Neg (Negative) 02/05/24 17:56 Urine Urobilinogen Norm mg/dL (Negative) 02/05/24 17:56 Ur Leukocyte Esterase Trace (Negative) H 02/05/24 17:56 Urine RBC None /hpf (0-2) 02/05/24 17:56 Urine WBC 5-10 /hpf (0-5) H 02/05/24 17:56 Ur Squamous Epith Cells None /hpf (0-5) 02/05/24 17:56 Amorphous Sediment Not Reportable 02/05/24 17:56 Urine Bacteria Trace /hpf (NONE) 02/05/24 17:56 Adenovirus (PCR) Not detected (NOT DETECT) 02/05/24 17:30 C. pneumoniae DNA (PCR) Not detected (NOT DETECT) 02/05/24 17:30 Coronavirus 229E (PCR) Not detected (NOT DETECT) 02/05/24 17:30 Human Metapneumovir PCR Not detected (NOT DETECT) 02/05/24 17:30 Influenza A (H1) PCR Not detected (NOT DETECT) 02/05/24 17:30 Influ A (H1/09) PCR Not detected (NOT DETECT) 02/05/24 17:30 Influenza A (H3) PCR Not detected (NOT DETECT) 02/05/24 17:30 Influenza Type A (PCR) Not detected (NOT DETECT) 02/05/24 17:30 Influenza Type B (PCR) Not detected (NOT DETECT) 02/05/24 17:30 M. pneumoniae (PCR) Not detected (NOT DETECT) 02/05/24 17:30 Parainfluenza 1 (PCR) Not detected (NOT DETECT) 02/05/24 17:30 Parainfluenza 2 (PCR) Not detected (NOT DETECT) 02/05/24 17:30 Parainfluenza 3 (PCR) Not detected (NOT DETECT) 02/05/24 17:30 Parainfluenza 4 (PCR) Not detected (NOT DETECT) 02/05/24 17:30 RSV Type A (PCR) Not detected (NOT DETECT) 02/05/24 17:30 RSV Type B (PCR) Not detected (NOT DETECT) 02/05/24 17:30 Entero/Rhino (PCR) Detected (NOT DETECT) A 02/05/24 17:30 SARS-CoV-2 (PCR) Not detected (NOT DETECT) 02/05/24 17:30 All radiology interpretation(s) finalized by discharge Discharge Plan Discharge Patient Disposition: Home Clinical Impression: Enterovirus infection, Dehydration, Urinary tract infection, Generalized weakness Parkinsons disease Qualifiers: Dyskinesia presence: unspecified whether dyskinesia Fluctuating manifestations: unspecified whether manifestations fluctuate Qualified Code(s): G20.A1 - Parkinson's disease without dyskinesia, without mention of fluctuations Condition: Stable Prescriptions: New cefdinir 300 mg capsule 300 mg PO BID 5 Days Qty: 10 0RF No Action fluticasone propionate [Allergy Relief (fluticasone)] 50 mcg/actuation spray,suspension 1 spray intranasal BID Rx Instructions: administer into each nostril albuterol sulfate 2.5 mg /3 mL (0.083 %) solution for nebulization 2.5 mg inhalation Q4H PRN atorvastatin 40 mg tablet 40 mg PO DAILY 90 Days Qty: 90 3RF famotidine 20 mg tablet 20 mg PO BID 90 Days Qty: 180 3RF OcuSoft Lid Scrub Pads, Medicated 1 pad TOPICAL DAILY Refresh Plus 0.5 % Dropperette 1 - 2 drp OPHTHALMIC (EYE) PRN PRN (Reason: Dry Eyes) fluticasone propionate 50 mcg/actuation spray,suspension 2 spray intranasal DAILY PRN (Reason: nasal congestion) Qty: 16 0RF Rx Instructions: administer into each nostril guaifenesin 1,200 mg tablet extended release 12hr 1,200 mg PO BID Qty: 14 0RF benzonatate 200 mg capsule 200 mg PO TID Qty: 30 0RF acetaminophen [Tylenol] 325 mg Tablet 650 mg PO Q4H PRN (Reason: Pain) polyethylene glycol 3350 [Miralax] 17 gram Powder In Packet 17 g PO DAILY PRN (Reason: Constipation) cyanocobalamin (vitamin B-12) 1,000 mcg Tablet 1,000 mcg PO DAILY@08 melatonin 3 mg Tablet 6 mg PO BEDTIME docusate sodium [Colace] 100 mg Capsule 100 - 300 mg PO DAILY PRN (Reason: Constipation) bismuth subsalicylate [[place] Bismuth] 262 mg Tablet,Chewable 524 mg PO .EVERY 30-60 MINS PRN (Reason: Heartburn) carbidopa-levodopa 25-100 mg tablet 1.5 tab PO QID Rx Instructions: @06:00,12:00,16:00,20:15 Refresh P.M. (lanolin) Ointment See Rx Instructions .ROUTE .COMPLEX Rx Instructions: PULL DOWN LOWER LID OF AFFECTED EYE AND APPLY SMALL AMOUNT INSIDE OF EYE cholecalciferol (vitamin D3) [Vitamin D3] 50 mcg (2,000 unit) Capsule 2,000 unit PO DAILY@08 Systane Nighttime 94-3 % Ointment See Rx Instructions .ROUTE .COMPLEX Rx Instructions: APPLY OINTMENT TO DRY EYES NEEDED Systane Gel 0.4-0.3 % Drops,Gel 1 - 2 drp OPHTHALMIC (EYE) PRN Rx Instructions: TO AFFECTED EYE menthol 1.1 mg Lozenge 1.1 mg PO .EVERY 2 HOURS PRN (Reason: Cough) ascorbic acid (vitamin C) [Vitamin C] 1,000 mg tablet 1,000 mg PO DAILY aspirin 325 mg tablet 325 mg PO DAILY calcium carbonate-vitamin D3 [Calcium 600 + D(3)] 600 mg-10 mcg (400 unit) tablet 1 tab PO DAILY donepezil 5 mg tablet 5 mg PO DAILY glycopyrrolate 1 mg tablet 1 mg PO TID ropinirole 1 mg tablet 1 mg PO TID Discharge Orders: Discharge ED (Routine); Ordered 02/05/24 Ordered By: Thelma Lerner Discharge Diet: Usual diet Discharge Activity: Increase activity as tolerated Patient Instructions: Opioid Safety, Pain Management Activity Restrictions/Additional Instructions: Thank you for choosing [facility] for your healthcare needs today. Please realize this is an emergency room and that we are providing you with a medical screening exam and this may not be complete and all inclusive of all the testing and or work up that you may need to determine your ailment or severity of your illness. You have been screened and evaluated and felt safe for discharge. Health conditions do change or evolve sometimes and as such it is important that you follow up with your Primary Doctor to be re checked, 3-5 days is a general good time frame for follow up. You are always welcome to return to the ED for re assessment if your symptoms are worsening or you have new concerns Coding Level of Care Code ED Product Engineering Manager for Tadeo Peoples
[2024-02-05 17:12] VITALS: BP 134/80; PULSE 80; RESP 16; O2SAT 97
--- NOTE | 2024-02-05 17:20 | ECG_ITS ---
[facility] Test Date: 2024-02-05 Pat Name: Bartolome Catalan Department: Room: Gender: Male Training Director: : 1940 Requested By: Thelma Howell Order Number: [id number] Belg[place] MD: Theodore Davison M.D. Measurements Intervals [place] Rate: 80 P: 20 HI: 186 QRS: -2 QRSD: 112 T: -53 QT: 391 QTc: 452 Interpretive Statements SINUS RHYTHM WITH OCCASIONAL VENTRICULAR PREMATURE COMPLEXES LATERAL MYOCARDIAL INFARCTION , OF INDETERMINATE AGE [40+ ms Q WAVE AND/OR ST/T ABNORMALITY IN I/aVL/V5/V6] INFERIOR MYOCARDIAL INFARCTION , OF INDETERMINATE AGE [40+ ms Q WAVE AND/OR ST/T ABNORMALITY IN II/aVF] Compared to ECG 11/24/2023 16:44:52 Ventricular premature complex(es) now present Sinus bradycardia no longer present Myocardial infarct finding still present Electronically Signed On 02-06-2024 10:56:10 CDT by Theodore Davison M.D. [email or web address]
[2024-02-05 17:26] LABS: Basophils # 0.1 10^3/uL (0.0-0.1); Basophils % 0.4 %; Eosinophils % 0.3 %; Hematocrit 49.5 % (37-53); Lymphocytes # 1.7 10^3/uL (0.8-4.8); Lymphocytes % 14.1 %; Mean Corpuscular HGB Conc 33.9 g/dL (30-55); Mean Corpuscular Hemoglobin 35.2 pg (27-33); Mean Corpuscular Volume 103.8 fl (82-101); Mean Platelet Volume 9.5 fL (7.4-10.4); Monocytes % 8.5 %; Neutrophils # 9.09 10^3/uL (1.8-7.7); Neutrophils % 76.3 %; Nucleated Red Blood Cells % 0 %; Platelet Count 300 10^3/cmm (157-399); Red Blood Count 4.77 10^6/uL (3.85-5.65); Red Cell Distribution Width 12.5 % (12.1-15.1); White Blood Count 11.92 10^3/uL (3.29-11.43)
[2024-02-05 17:49] LABS: Troponin(5th) Baseline 30 ng/L (0-15)
[2024-02-05 17:50] LABS: Alanine Aminotransferase 6 U/L (0-41); Albumin Level 4.2 g/dL (3.5-5.2); Alkaline Phosphatase 81 U/L (40-130); Anion Gap 15.4 (5-19); Aspartate Amino Transferase 10 U/L (0-40); Blood Urea Nitrogen 13 mg/dL (8-23); C Reactive Protein 45.5 mg/L (0.0-4.9); Carbon Dioxide 29 mmol/L (22-29); Chloride 99 mmol/L (98-107); Creatinine Clr Calc Pharmacy 70.2759; Globulin 3.9 g/dL (1.3-4.6); Glucose 100 mg/dL (65-115); Osmolality Calculated 288 mOsm/kg (285-295); Potassium 4.4 mmol/L (3.5-5.1); Sodium 139 mmol/L (136-145); Total Bilirubin 0.8 mg/dL (0.15-1.2); Total Protein 8.1 g/dL (6.6-8.7)
[2024-02-05 17:51] LABS: Lactic Sepsis W/Reflex 1.1 mmol/L (0.5-2.2)
[2024-02-05 18:00] VITALS: BP 119/68; PULSE 73; RESP 16; O2SAT 97
[2024-02-05 18:12] LABS: Bilirubin Urine Neg (Negative); Blood Urine Neg (Negative); Glucose Urine UA Norm (Normal); Ketones Urine 2+ (Negative); Nitrate Urine Negative (Negative); Protein Urine Neg (Negative); Urine Appearance Clear (CLEAR); Urine Color Yellow (Yellow); pH Urine 7 (5-7)
[2024-02-05 18:13] LABS: Add Urine Culture? No; Bacteria Urine TRACE /hpf; Leukocyte Esterase Urine Trace (Negative); Urobilinogen Urine Norm (Negative)
[2024-02-05] MEDS: cefTRIAXone 1,000 MG in sodium chloride 0.9% (plus) 50 ML 100 MG IV (18:51)
--- NOTE | 2024-02-05 18:51 | ECG_ITS ---
[facility] Test Date: 2024-02-05 Pat Name: Bartolome Catalan Department: Room: Gender: Male [employer] Internship: : 1940 Requested By: Thelma Howell Order Number: [id number] [place] MD: Theodore Davison M.D. Measurements Intervals [place] Rate: 72 P: 26 [place]: 196 QRS: -10 QRSD: 120 T: -43 QT: 420 QTc: 462 Interpretive Statements SINUS RHYTHM WITH FREQUENT VENTRICULAR PREMATURE COMPLEXES LATERAL MYOCARDIAL INFARCTION , OF INDETERMINATE AGE [40+ ms Q WAVE AND/OR ST/T ABNORMALITY IN I/aVL/V5/V6] INFERIOR MYOCARDIAL INFARCTION , OF INDETERMINATE AGE [40+ ms Q WAVE AND/OR ST/T ABNORMALITY IN II/aVF] Compared to ECG 02/05/2024 18:36:11 No significant changes Electronically Signed On 02-06-2024 10:57:57 CDT by Theodore Davison M.D. [id number]
[2024-02-05] MEDS: sodium chloride 0.9% 1,000 ML 999 ML IV (18:52)
[2024-02-05 19:32] LABS: Adenovirus Not Detected (NOT DETECT); Chlamydia Pneumoniae Not Detected (NOT DETECT); Coronavirus 229E,HKU1,NL63,OC4 Not Detected (NOT DETECT); Human Metapneumovirus Not Detected (NOT DETECT); Human Rhinovirus/Enterovirus Detected (NOT DETECT); Influenza A Not Detected (NOT DETECT); Influenza A H1 Not Detected (NOT DETECT); Influenza A H1-2009 Not Detected (NOT DETECT); Influenza A H3 Not Detected (NOT DETECT); Influenza B Not Detected (NOT DETECT); Mycoplasma Pneumoniae Not Detected (NOT DETECT); Parainfluenza Virus Type 1 Not Detected (NOT DETECT); Parainfluenza Virus Type 2 Not Detected (NOT DETECT); Parainfluenza Virus Type 3 Not Detected (NOT DETECT); Parainfluenza Virus Type 4 Not Detected (NOT DETECT); Respiratory Syncytial Virus A Not Detected (NOT DETECT); Respiratory Syncytial Virus B Not Detected (NOT DETECT); SARS-COV-2 Not Detected (NOT DETECT)
[2024-02-05 20:00] VITALS: BP 121/70; PULSE 77; RESP 16; O2SAT 96
[2024-02-05 20:29] LABS: Troponin 5 2HR 26.37 ng/L (0-15)
[2024-02-05 20:30] LABS: Troponin 5 2HR Delta -3.63 ABS# (0-10)
[2024-02-05 21:00] VITALS: BP 119/68; PULSE 71; RESP 14; O2SAT 94
--- NOTE | 2024-02-05 22:51 | ECG_ITS ---
[facility] Test Date: 2024-02-05 Pat Name: Bartolome Catalan Department: Room: Gender: Male [employer] Production: : 1940 Requested By: Thelma Howell Order Number: [id number] Belgica MD: Theodore Davison M.D. Measurements Intervals [place] Rate: 74 P: 5 [place]: 176 QRS: -6 QRSD: 116 T: -36 QT: 395 QTc: 439 Interpretive Statements SINUS RHYTHM WITH OCCASIONAL VENTRICULAR PREMATURE COMPLEXES LATERAL MYOCARDIAL INFARCTION , OF INDETERMINATE AGE [40+ ms Q WAVE AND/OR ST/T ABNORMALITY IN I/aVL/V5/V6] INFERIOR MYOCARDIAL INFARCTION , OF INDETERMINATE AGE [40+ ms Q WAVE AND/OR ST/T ABNORMALITY IN II/aVF] Compared to ECG 02/05/2024 17:20:14 No significant changes Electronically Signed On 02-06-2024 10:58:13 CDT by Theodore Davison M.D. [id number]
== END 2024-02-05 23:46 | disposition home or self-care (01) ==
PROVIDERS: Emergency Provider Emergency Medicine
DX: B34.1 Enterovirus infection, unspecified (principal); E86.0 Dehydration; N39.0 Urinary tract infection, site not specified; R53.1 Weakness; G20.A1 Parkinson's disease without dyskinesia, without mention of fluctuations; Z79.82 Long term (current) use of aspirin; Z11.52 Encounter for screening for COVID-19; I25.2 Old myocardial infarction
CPT/HCPCS: 71045; 80053; 81001; 83605; 84484; 85025; 86140; 87040; 87486; 87581; 87633; 93005; 96365; 96366; 99285; J0696; J7030